=== PATIENT | female | born 1945 | race Asian ===

== ENCOUNTER 2024-01-25 05:40 | Day surgery (SDC) | payer MEDICARE, OTHER ==
[~2024-01-25] VITALS: Ht 139.7 cm; Wt 53.1 kg
[~2024-01-25 05:40] MED LIST: AMLO-258 PO; KETOROLAC TROMETHAMINE 0.5% 5 ML OPHTHALMIC SOLUTION ONE; MOXIFLOXACIN HCL 0.5% 3 ML OPHTHALMIC SOLUTION ONE; PHENYLEPHRINE HCL 2.5% 2 ML OPHTHALMIC SOLUTION ONE; RINGERS SOLUTION,LACTATED 500 ML IV ONE; TROPICAMIDE 1% 2 ML OPHTHALMIC SOLUTION ONE
[2024-01-25] MEDS ORDERED: POVIDONE-IODINE 5% 30 ML OPHTHALMIC SOLUTION OD ONE (05:41)
[2024-01-25] MEDS ORDERED: EPINEPHrine 1:1,000 [1 MG/ML] VIAL ET ONE (05:41)
[2024-01-25] MEDS ORDERED: TETRACAINE HCL/PF 0.5% 4 ML OPHTHALMIC SOLUTION OD ONE (05:41)
[2024-01-25] MEDS ORDERED: BALANCED SALT 15 ML OPHTHALMIC IRRIG.SOLN IO ONE (05:41)
[2024-01-25] MEDS ORDERED: LIDOCAINE 1%/EPI 1:200,000/PF 10 ML VIAL CAUDAL ONE (05:41)
[2024-01-25] MEDS: KETOROLAC TROMETHAMINE 0.5% 5 ML OPHTHALMIC SOLUTION OD SCH (06:42)
[2024-01-25] MEDS: TROPICAMIDE 1% 2 ML OPHTHALMIC SOLUTION OD SCH (06:43)
[2024-01-25] MEDS: PHENYLEPHRINE HCL 2.5% 2 ML OPHTHALMIC SOLUTION OD SCH (06:43)
[2024-01-25] MEDS: MOXIFLOXACIN HCL 0.5% 3 ML OPHTHALMIC SOLUTION OD SCH (06:43)
[2024-01-25] MEDS: RINGERS SOLUTION,LACTATED 500 ML IV ONE (06:47)
[2024-01-25 06:51] LABS: GLUCOMETER DEV NAME(LOC) SDS.; GLUCOSE,POINT OF CARE 107 MG/DL (70-110)
[2024-01-25] MEDS: BALANCED SALT 15 ML OPHTHALMIC IRRIG.SOLN ONE (09:59)
[2024-01-25] MEDS: EPINEPHrine 1:1,000 [1 MG/ML] VIAL ONE (09:59)
[2024-01-25] MEDS: LIDOCAINE/PF 1% 2 ML VIAL ONE (10:00)
[2024-01-25] MEDS: TETRACAINE HCL/PF 0.5% 4 ML OPHTHALMIC SOLUTION ONE (10:01)
[2024-01-25] MEDS: POVIDONE-IODINE 5% 30 ML OPHTHALMIC SOLUTION ONE (10:01)
[2024-01-25] MEDS ORDERED: GLYCOPYRROLATE 0.2 MG/ML VIAL IM ONE (12:00)
== END 2024-01-25 09:15 | disposition home or self-care (01) ==
LOC: SURGERY 05:40
PROVIDERS: ATTEND Ophthalmology
DX: H25.11 Age-related nuclear cataract, right eye (principal); H40.9 Unspecified glaucoma; I10 Essential (primary) hypertension; J18.9 Pneumonia, unspecified organism; E03.9 Hypothyroidism, unspecified; M54.9 Dorsalgia, unspecified; R07.9 Chest pain, unspecified; Z79.899 Other long term (current) drug therapy
CPT/HCPCS: 66984; 93005; 82962; J0171; J3490 ×3; Q9967; J7120; V2632

== ENCOUNTER 2024-02-22 07:24 | Day surgery (SDC) | payer MEDICARE, OTHER ==
[~2024-02-22] VITALS: Ht 139.7 cm; Wt 53.2 kg
[2024-02-22] MEDS: PHENYLEPHRINE HCL 2.5% 2 ML OPHTHALMIC SOLUTION OS SCH (07:58)
[2024-02-22] MEDS: KETOROLAC TROMETHAMINE 0.5% 5 ML OPHTHALMIC SOLUTION OS SCH (07:59)
[2024-02-22] MEDS: MOXIFLOXACIN HCL 0.5% 3 ML OPHTHALMIC SOLUTION OS SCH (07:59)
[2024-02-22] MEDS: TROPICAMIDE 1% 2 ML OPHTHALMIC SOLUTION OS SCH (08:06)
[2024-02-22] MEDS: RINGERS SOLUTION,LACTATED 500 ML IV ONE (08:08)
[2024-02-22] MEDS ORDERED: POVIDONE-IODINE 5% 30 ML OPHTHALMIC SOLUTION ONE (11:12)
[2024-02-22] MEDS ORDERED: FentaNYL CITRATE PF 100 MCG/2 ML VIAL IVP ONE (12:00)
[2024-02-22] MEDS ORDERED: MIDAZOLAM HCL 2 MG/2 ML VIAL IVP ONE (12:00)
[2024-02-22] MEDS: LIDOCAINE/PF 1% 2 ML VIAL ONE (19:17)
[2024-02-22] MEDS: POVIDONE-IODINE 5% 30 ML OPHTHALMIC SOLUTION ONE (19:18)
[2024-02-22] MEDS: TETRACAINE HCL/PF 0.5% 4 ML OPHTHALMIC SOLUTION ONE (19:18)
[2024-02-23] MEDS ORDERED: TROPICAMIDE 1% 2 ML OPHTHALMIC SOLUTION OS SCH (10:00)
== END 2024-02-22 10:35 | disposition home or self-care (01) ==
LOC: SURGERY 07:24
PROVIDERS: ATTEND Ophthalmology
DX: H25.812 Combined forms of age-related cataract, left eye (principal); I10 Essential (primary) hypertension; J18.9 Pneumonia, unspecified organism; R94.31 Abnormal electrocardiogram [ECG] [EKG]; I44.7 Left bundle-branch block, unspecified
CPT/HCPCS: 66174; 93005; 66984; J3010; J3490; J2250; J7120; V2632